=== PATIENT | male | born 1980 | race Caucasian/White ===

== ENCOUNTER 2017-12-05 05:00 | Inpatient (IN) | payer OTHER ==
[2017-12-05] MEDS ORDERED: BISACODYL (EC) 5 MG TAB PO (07:00)
[2017-12-05] MEDS ORDERED: morphine 2 MG INJ IV (07:00)
[2017-12-05] MEDS ORDERED: GLUCAGON 1 MG INJ IM (07:30)
[2017-12-05] MEDS ORDERED: GLUCOSE GEL 15 GRAM TUBE BUCCAL (07:30)
[2017-12-05] MEDS ORDERED: DEXTROSE 50% 50 ML SYRINGE IV ×2 (07:30)
[2017-12-05] MEDS ORDERED: GLUCOSE GEL 15 GRAM TUBE PO ×2 (07:30)
[2017-12-05 07:56] LABS: ADD MAN DIFF? NO
[2017-12-05 07:59] LABS: WHITE BLOOD COUNT 11.1 10^3/ul (4.8-10.8)
[2017-12-05 07:59] LABS: BASOPHILS % 0.3 % (0.0-2.0); EOSINOPHILS # 0.1 10^3/ul (0.0-0.5); EOSINOPHILS % 0.9 % (0.0-7.0); HEMATOCRIT 32.2 % (42.0-52.0); HEMOGLOBIN 10.9 g/dl (14.0-18.0); LYMPHOCYTES # 1.5 10^3/ul (0.8-2.9); LYMPHOCYTES % 13.7 % (15.0-51.0); MEAN CORPUSCULAR HEMOGLOBIN 29.3 pg (29.0-33.0); MEAN CORPUSCULAR HGB CONC 33.9 g/dl (32.0-37.0); MEAN CORPUSCULAR VOLUME 86.6 fl (82.0-101.0); MONOCYTE # 0.8 10^3/ul (0.3-0.9); MONOCYTES % 7.3 % (0.0-11.0); NEUTROPHIL # 8.6 10^3/ul (1.6-7.5); NEUTROPHILS % 77.3 % (39.0-77.0); PLATELET COUNT 232 10^3/UL (140-415); RED BLOOD COUNT 3.72 10^6/ul (4.70-6.10); RED CELL DISTRIBUTION WIDTH 11.8 % (11.5-14.5)
[2017-12-05 08:16] LABS: ANION GAP 12 (8-16); BLOOD UREA NITROGEN 18 mg/dl (7-20); CARBON DIOXIDE 25 mmol/L (21-31); CHLORIDE 104 mmol/L (97-110); CREATININE 0.87 mg/dl (0.61-1.24); GLUCOSE 200 mg/dl (70-220); POTASSIUM 4.4 mmol/L (3.5-5.1); SODIUM 137 mmol/L (135-144)
[2017-12-05 08:27] LABS: HEMOGLOBIN A1C 8.4 % (0-5.9)
[2017-12-05] MEDS: CEFTRIAXONE 1 GM/50 ML (PMX) 50 ML IVPB (08:36)
[2017-12-05] MEDS: SOD CHLORIDE 0.9% 1,000 ML IV (08:37)
[2017-12-05] MEDS: ENOXAPARIN 40 MG/0.4 ML SYG SC (08:45)
[2017-12-05] MEDS: INSULIN ASPART [NOVOLOG] 3 ML PEN SC ×4 (09:13→20:12)
[2017-12-05 15:07] LABS: C-REACTIVE PROTEIN 6.9 mg/dl (0.0-0.9)
[2017-12-05] MEDS ORDERED: VANCOMYCIN IV PER PHARMACY XX (17:00)
[2017-12-05] MEDS: VANCOMYCIN 1.75 GM in SOD CHLORIDE 0.9% 500 ML IVPB (23:43)
[2017-12-05] MEDS: ACCU-CHEK XX (23:48)
[2017-12-06] MEDS: CEFTRIAXONE 1 GM/50 ML (PMX) 50 ML IVPB (06:00)
[2017-12-06 06:39] LABS: ADD MAN DIFF? NO
[2017-12-06 06:42] LABS: BASOPHIL # 0.1 10^3/ul (0.0-0.1); BASOPHILS % 0.7 % (0.0-2.0); EOSINOPHILS # 0.1 10^3/ul (0.0-0.5); HEMATOCRIT 30.8 % (42.0-52.0); HEMOGLOBIN 10.5 g/dl (14.0-18.0); LYMPHOCYTES # 1.6 10^3/ul (0.8-2.9); LYMPHOCYTES % 22.7 % (15.0-51.0); MEAN CORPUSCULAR HGB CONC 34.1 g/dl (32.0-37.0); MEAN PLATELET VOLUME 10.3 fl (7.4-10.4); MONOCYTE # 0.6 10^3/ul (0.3-0.9); MONOCYTES % 8.8 % (0.0-11.0); NEUTROPHIL # 4.6 10^3/ul (1.6-7.5); NEUTROPHILS % 65.5 % (39.0-77.0); PLATELET COUNT 251 10^3/UL (140-415); RED CELL DISTRIBUTION WIDTH 11.9 % (11.5-14.5)
[2017-12-06 07:14] LABS: ANION GAP 11 (8-16); BLOOD UREA NITROGEN 18 mg/dl (7-20); CARBON DIOXIDE 26 mmol/L (21-31); CHLORIDE 107 mmol/L (97-110); CREATININE 0.94 mg/dl (0.61-1.24); GLUCOSE 197 mg/dl (70-220); POTASSIUM 4.1 mmol/L (3.5-5.1); SODIUM 140 mmol/L (135-144)
[2017-12-06 07:16] LABS: PHOSPHORUS 3.9 mg/dl (2.5-4.9)
[2017-12-06] MEDS: ENOXAPARIN 40 MG/0.4 ML SYG SC (08:20)
[2017-12-06] MEDS: INSULIN ASPART [NOVOLOG] 3 ML PEN SC ×4 (08:22→20:37)
[2017-12-06] MEDS: VANCOMYCIN 1.25 GM in SOD CHLORIDE 0.9% 250 ML IVPB ×2 (11:43→23:08)
[2017-12-06] MEDS: SODIUM HYPOCHLORITE (1/40) 1 APPLIC BTL IRR (15:00)
[2017-12-06] MEDS ORDERED: morphine LIQ (10 MG/5 ML) CUP PO (19:00)
[2017-12-06] MEDS: INSULIN DETEMIR [LEVEMIR] (100 UNITS/ML) SYG SC (20:33)
[2017-12-07] MEDS: ACCU-CHEK XX (02:00)
[2017-12-07 05:20] LABS: ADD MAN DIFF? NO; BASOPHILS % 0.4 % (0.0-2.0); EOSINOPHILS # 0.1 10^3/ul (0.0-0.5); HEMATOCRIT 32.8 % (42.0-52.0); HEMOGLOBIN 11.1 g/dl (14.0-18.0); IMMATURE GRANS #M 0.02 10^3/ul; IMMATURE GRANS % (M) 0.3 %; LYMPHOCYTES # 1.8 10^3/ul (0.8-2.9); MEAN CORPUSCULAR HGB CONC 33.8 g/dl (32.0-37.0); MEAN CORPUSCULAR VOLUME 85.6 fl (82.0-101.0); MEAN PLATELET VOLUME 9.9 fl (7.4-10.4); MONOCYTE # 0.6 10^3/ul (0.3-0.9); MONOCYTES % 8.1 % (0.0-11.0); NEUTROPHIL # 4.5 10^3/ul (1.6-7.5); NEUTROPHILS % 64.2 % (39.0-77.0); PLATELET COUNT 286 10^3/UL (140-415); RED BLOOD COUNT 3.83 10^6/ul (4.70-6.10); RED CELL DISTRIBUTION WIDTH 11.7 % (11.5-14.5)
[2017-12-07 05:56] LABS: ANION GAP 11 (8-16); BLOOD UREA NITROGEN 14 mg/dl (7-20); CALCIUM 9.6 mg/dl (8.4-10.2); CARBON DIOXIDE 26 mmol/L (21-31); CHLORIDE 106 mmol/L (97-110); CREATININE 0.87 mg/dl (0.61-1.24); GLUCOSE 188 mg/dl (70-220); POTASSIUM 4.3 mmol/L (3.5-5.1); SODIUM 139 mmol/L (135-144)
[2017-12-07] MEDS: PANTOPRAZOLE (EC) 40 MG TAB PO (06:19)
[2017-12-07] MEDS: CEFTRIAXONE 1 GM/50 ML (PMX) 50 ML IVPB (06:22)
[2017-12-07] MEDS: INSULIN DETEMIR [LEVEMIR] (100 UNITS/ML) SYG SC (08:08)
[2017-12-07] MEDS: ENOXAPARIN 40 MG/0.4 ML SYG SC (08:09)
[2017-12-07] MEDS: INSULIN ASPART [NOVOLOG] 3 ML PEN SC ×4 (08:09→21:00)
[2017-12-07] MEDS: VANCOMYCIN 1.25 GM in SOD CHLORIDE 0.9% 250 ML IVPB ×2 (12:02→23:13)
[2017-12-07] MEDS: LINAGLIPTIN 5 MG TABLET PO (12:03)
[2017-12-07] MEDS: SODIUM HYPOCHLORITE (1/40) 1 APPLIC BTL IRR (14:30)
[2017-12-07] MEDS: LIDOCAINE 1% (MPF) 5 ML VIAL SC (16:30)
[2017-12-08] MEDS: ACCU-CHEK XX (02:00)
[2017-12-08] MEDS: PANTOPRAZOLE (EC) 40 MG TAB PO (05:20)
[2017-12-08 05:38] LABS: ANION GAP 13 (8-16); BLOOD UREA NITROGEN 15 mg/dl (7-20); CALCIUM 9.5 mg/dl (8.4-10.2); CARBON DIOXIDE 27 mmol/L (21-31); CHLORIDE 104 mmol/L (97-110); CREATININE 0.89 mg/dl (0.61-1.24); GLUCOSE 176 mg/dl (70-220); POTASSIUM 4.3 mmol/L (3.5-5.1); SODIUM 140 mmol/L (135-144)
[2017-12-08] MEDS: CEFTRIAXONE 1 GM/50 ML (PMX) 50 ML IVPB (06:05)
[2017-12-08] MEDS: LINAGLIPTIN 5 MG TABLET PO (08:03)
[2017-12-08] MEDS: INSULIN DETEMIR [LEVEMIR] (100 UNITS/ML) SYG SC (08:04)
[2017-12-08] MEDS: INSULIN ASPART [NOVOLOG] 3 ML PEN SC ×4 (08:05→20:55)
[2017-12-08] MEDS: VANCOMYCIN 1.25 GM in SOD CHLORIDE 0.9% 250 ML IVPB ×2 (11:00→12:24)
[2017-12-08] MEDS: ENOXAPARIN 40 MG/0.4 ML SYG SC (12:25)
[2017-12-08] MEDS: SODIUM HYPOCHLORITE (1/40) 1 APPLIC BTL IRR (14:50)
[2017-12-08] MEDS: CEFEPIME 2GM/50 ML (PMX) 50 ML IVPB (22:32)
[2017-12-09] MEDS: DEXTROSE 5%-0.45% NACL 1,000 ML IV ×2 (00:33→20:00)
[2017-12-09] MEDS: VANCOMYCIN 1.25 GM in SOD CHLORIDE 0.9% 250 ML IVPB ×3 (00:33→22:33)
[2017-12-09] MEDS: INSULIN ASPART [NOVOLOG] 3 ML PEN SC ×6 (01:00→21:00)
[2017-12-09] MEDS: PANTOPRAZOLE (EC) 40 MG TAB PO (05:46)
[2017-12-09] MEDS: LINAGLIPTIN 5 MG TABLET PO (09:00)
[2017-12-09] MEDS: CEFEPIME 2GM/50 ML (PMX) 50 ML IVPB ×2 (09:07→21:44)
[2017-12-09] MEDS: ENOXAPARIN 40 MG/0.4 ML SYG SC (09:09)
[2017-12-09] MEDS: INSULIN DETEMIR [LEVEMIR] (100 UNITS/ML) SYG SC (09:10)
[2017-12-09] MEDS: SODIUM HYPOCHLORITE (1/40) 1 APPLIC BTL IRR (09:17)
[2017-12-09 17:55] LABS: INR 0.97
[2017-12-10] MEDS: INSULIN ASPART [NOVOLOG] 3 ML PEN SC ×5 (01:00→16:45)
[2017-12-10] MEDS: PANTOPRAZOLE (EC) 40 MG TAB PO (06:00)
[2017-12-10 08:35] LABS: ANION GAP 10 (8-16); BLOOD UREA NITROGEN 18 mg/dl (7-20); CALCIUM 8.8 mg/dl (8.4-10.2); CARBON DIOXIDE 25 mmol/L (21-31); CHLORIDE 105 mmol/L (97-110); CREATININE 0.84 mg/dl (0.61-1.24); GLUCOSE 322 mg/dl (70-220); POTASSIUM 4.1 mmol/L (3.5-5.1); SODIUM 136 mmol/L (135-144)
[2017-12-10] MEDS: SODIUM HYPOCHLORITE (1/40) 1 APPLIC BTL IRR (08:55)
[2017-12-10] MEDS: CEFEPIME 2GM/50 ML (PMX) 50 ML IVPB ×2 (08:56→22:19)
[2017-12-10] MEDS: LINAGLIPTIN 5 MG TABLET PO (08:56)
[2017-12-10] MEDS: INSULIN DETEMIR [LEVEMIR] (100 UNITS/ML) SYG SC (08:59)
[2017-12-10] MEDS: ENOXAPARIN 40 MG/0.4 ML SYG SC (09:00)
[2017-12-10] MEDS: VANCOMYCIN 1.25 GM in SOD CHLORIDE 0.9% 250 ML IVPB (11:16)
[2017-12-10] MEDS: DEXTROSE 5%-0.45% NACL 1,000 ML IV (15:58)
[2017-12-10] MEDS ORDERED: LABETALOL HCL 20MG INJ IV (19:30)
[2017-12-10] MEDS ORDERED: FENTAnyl 50 MCG/ML VIAL IV (19:30)
[2017-12-10] MEDS ORDERED: MEPERIDINE 25 MG INJ IV (19:30)
[2017-12-10] MEDS ORDERED: DIPHENHYDRAMINE 50 MG INJ IV (19:30)
[2017-12-10] MEDS ORDERED: hydrALAzine 20 MG INJ IV (19:30)
[2017-12-10] MEDS ORDERED: ONDANSETRON 4 MG INJ IV ×2 (19:30→20:30)
[2017-12-10] MEDS ORDERED: HYDROmorphONE 1 MG/5 ML IV SYRINGE IV ×2 (19:30)
[2017-12-10] MEDS ORDERED: MIDAZOLAM 1 MG/ML 2 ML INJ (19:37)
[2017-12-10] MEDS ORDERED: FENTAnyl 50 MCG/ML VIAL (19:37)
[2017-12-10] MEDS: POLYMYXIN/BACITRACIN 1L IRRIG IRR (19:48)
[2017-12-10] MEDS ORDERED: LIDOCAINE 2% (SDV) 5 ML INJ (20:13)
[2017-12-10] MEDS ORDERED: PROPOFOL 20 ML (20:13)
[2017-12-10] MEDS ORDERED: HYDROCODONE/APAP (5/325) TAB PO (20:30)
[2017-12-10] MEDS ORDERED: INSULIN ASPART [NOVOLOG] 3 ML PEN SC (22:00)
[2017-12-10 23:51] LABS: VANCOMYCIN,TROUGH 12.1 ug/ml (10.0-20.0)
[2017-12-11] MEDS: VANCOMYCIN 1.25 GM in SOD CHLORIDE 0.9% 250 ML IVPB ×2 (00:07→10:41)
[2017-12-11] MEDS ORDERED: ACCU-CHEK XX ×2 (02:00)
[2017-12-11] MEDS: ACCU-CHEK XX ×2 (02:00→22:07)
[2017-12-11] MEDS: PANTOPRAZOLE (EC) 40 MG TAB PO (06:29)
[2017-12-11] MEDS: INSULIN ASPART [NOVOLOG] 3 ML PEN SC ×4 (08:00→20:14)
[2017-12-11] MEDS ORDERED: INSULIN ASPART [NOVOLOG] 3 ML PEN SC (08:00)
[2017-12-11] MEDS: CEFEPIME 2GM/50 ML (PMX) 50 ML IVPB ×2 (08:10→20:14)
[2017-12-11] MEDS: ENOXAPARIN 40 MG/0.4 ML SYG SC (08:11)
[2017-12-11] MEDS: INSULIN DETEMIR [LEVEMIR] (100 UNITS/ML) SYG SC (08:12)
[2017-12-11] MEDS: LINAGLIPTIN 5 MG TABLET PO (08:13)
[2017-12-11] MEDS: SODIUM HYPOCHLORITE (1/40) 1 APPLIC BTL IRR (08:20)
[2017-12-11 11:26] LABS: PROCALCITONIN <0.10 ng/mL (<0.10)
[2017-12-11] MEDS: DEXTROSE 5%-0.45% NACL 1,000 ML IV (12:00)
[2017-12-11] MEDS: VANCOMYCIN 1.5 GM in SOD CHLORIDE 0.9% 250 ML IVPB (21:46)
[2017-12-12] MEDS: PANTOPRAZOLE (EC) 40 MG TAB PO (05:36)
[2017-12-12] MEDS: ENOXAPARIN 40 MG/0.4 ML SYG SC (08:15)
[2017-12-12] MEDS: INSULIN ASPART [NOVOLOG] 3 ML PEN SC ×4 (08:15→20:39)
[2017-12-12] MEDS: INSULIN DETEMIR [LEVEMIR] (100 UNITS/ML) SYG SC (08:16)
[2017-12-12] MEDS: LINAGLIPTIN 5 MG TABLET PO (08:17)
[2017-12-12] MEDS: CEFEPIME 2GM/50 ML (PMX) 50 ML IVPB ×2 (08:17→20:39)
[2017-12-12] MEDS: SODIUM HYPOCHLORITE (1/40) 1 APPLIC BTL IRR (08:17)
[2017-12-12] MEDS: VANCOMYCIN 1.5 GM in SOD CHLORIDE 0.9% 250 ML IVPB ×2 (10:30→21:55)
[2017-12-12] MEDS: ACETAMINOPHEN 325 MG TAB PO (16:46)
[2017-12-12] MEDS: ACCU-CHEK XX (21:36)
[2017-12-13] MEDS: PANTOPRAZOLE (EC) 40 MG TAB PO (05:44)
[2017-12-13 06:30] LABS: ADD MAN DIFF? NO
[2017-12-13 06:40] LABS: BASOPHILS % 0.6 % (0.0-2.0); EOSINOPHILS # 0.2 10^3/ul (0.0-0.5); EOSINOPHILS % 2.3 % (0.0-7.0); HEMOGLOBIN 11.7 g/dl (14.0-18.0); LYMPHOCYTES # 1.9 10^3/ul (0.8-2.9); LYMPHOCYTES % 26.5 % (15.0-51.0); MEAN CORPUSCULAR HEMOGLOBIN 29.3 pg (29.0-33.0); MEAN CORPUSCULAR HGB CONC 34.4 g/dl (32.0-37.0); MEAN CORPUSCULAR VOLUME 85.2 fl (82.0-101.0); MEAN PLATELET VOLUME 9.6 fl (7.4-10.4); MONOCYTE # 0.6 10^3/ul (0.3-0.9); MONOCYTES % 7.9 % (0.0-11.0); NEUTROPHIL # 4.4 10^3/ul (1.6-7.5); PLATELET COUNT 289 10^3/UL (140-415); RED BLOOD COUNT 3.99 10^6/ul (4.70-6.10); RED CELL DISTRIBUTION WIDTH 11.9 % (11.5-14.5)
[2017-12-13 06:40] LABS: WHITE BLOOD COUNT 7.1 10^3/ul (4.8-10.8)
[2017-12-13 07:00] LABS: ANION GAP 12 (8-16); BLOOD UREA NITROGEN 18 mg/dl (7-20); CALCIUM 9.4 mg/dl (8.4-10.2); CARBON DIOXIDE 27 mmol/L (21-31); CHLORIDE 105 mmol/L (97-110); CREATININE 0.86 mg/dl (0.61-1.24); GLUCOSE 143 mg/dl (70-220); POTASSIUM 4.4 mmol/L (3.5-5.1); SODIUM 140 mmol/L (135-144)
[2017-12-13 07:12] LABS: MAGNESIUM 1.8 mg/dl (1.7-2.5)
[2017-12-13] MEDS: CEFEPIME 2GM/50 ML (PMX) 50 ML IVPB ×2 (08:10→20:16)
[2017-12-13] MEDS: INSULIN DETEMIR [LEVEMIR] (100 UNITS/ML) SYG SC (08:13)
[2017-12-13] MEDS: ENOXAPARIN 40 MG/0.4 ML SYG SC (08:13)
[2017-12-13] MEDS: INSULIN ASPART [NOVOLOG] 3 ML PEN SC ×4 (08:14→20:16)
[2017-12-13] MEDS: LINAGLIPTIN 5 MG TABLET PO (08:15)
[2017-12-13] MEDS: SODIUM HYPOCHLORITE (1/40) 1 APPLIC BTL IRR (08:18)
[2017-12-13] MEDS: ALTEPLASE (CATHFLO) 2 MG INJ CATHETER (11:00)
[2017-12-13] MEDS: VANCOMYCIN 1.5 GM in SOD CHLORIDE 0.9% 250 ML IVPB ×3 (11:42→22:00)
[2017-12-13] MEDS: LEVOFLOXACIN 500 MG TAB PO (20:16)
[2017-12-13 22:02] LABS: VANCOMYCIN,TROUGH 21.6 ug/ml (10.0-20.0)
[2017-12-13] MEDS: ACCU-CHEK XX (22:16)
[2017-12-14] MEDS: PANTOPRAZOLE (EC) 40 MG TAB PO (05:22)
[2017-12-14] MEDS: LINAGLIPTIN 5 MG TABLET PO (08:39)
[2017-12-14] MEDS: ENOXAPARIN 40 MG/0.4 ML SYG SC (08:39)
[2017-12-14] MEDS: INSULIN DETEMIR [LEVEMIR] (100 UNITS/ML) SYG SC (08:40)
[2017-12-14] MEDS: INSULIN ASPART [NOVOLOG] 3 ML PEN SC ×4 (08:41→21:00)
[2017-12-14] MEDS: CEFEPIME 2GM/50 ML (PMX) 50 ML IVPB ×2 (08:46→21:27)
[2017-12-14] MEDS: SODIUM HYPOCHLORITE (1/40) 1 APPLIC BTL IRR (09:00)
[2017-12-14] MEDS: VANCOMYCIN 1.25 GM in SOD CHLORIDE 0.9% 250 ML IVPB (09:57)
[2017-12-14] MEDS: LEVOFLOXACIN 500 MG TAB PO (21:27)
[2017-12-14] MEDS: VANCOMYCIN 1 GM 250 ML IVPB (22:43)
[2017-12-14] MEDS: ACCU-CHEK XX (22:46)
[2017-12-15] MEDS: PANTOPRAZOLE (EC) 40 MG TAB PO (05:20)
[2017-12-15] MEDS: INSULIN ASPART [NOVOLOG] 3 ML PEN SC ×3 (08:00→17:50)
[2017-12-15] MEDS: LINAGLIPTIN 5 MG TABLET PO (08:35)
[2017-12-15] MEDS: CEFEPIME 2GM/50 ML (PMX) 50 ML IVPB (08:35)
[2017-12-15] MEDS: INSULIN DETEMIR [LEVEMIR] (100 UNITS/ML) SYG SC (08:37)
[2017-12-15] MEDS: ENOXAPARIN 40 MG/0.4 ML SYG SC (08:39)
[2017-12-15] MEDS: SODIUM HYPOCHLORITE (1/40) 1 APPLIC BTL IRR (09:40)
[2017-12-15] MEDS: VANCOMYCIN 1 GM 250 ML IVPB ×2 (09:49→18:10)
[2017-12-15] MEDS: LEVOFLOXACIN 500 MG TAB PO (20:31)
== END 2017-12-15 20:55 | disposition home health service (06) | DRG 623 ==
LOC: PP2 05:00
PROC: 0JBQ0ZZ Excision of Right Foot Subcutaneous Tissue and Fascia, Open Approach (ICD-10-PCS; principal; 2017-12-10 19:33)
PROC: 0JBQ0ZZ Excision of Right Foot Subcutaneous Tissue and Fascia, Open Approach (ICD-10-PCS; 2017-12-10 19:33)
PROC: 0Y9M0ZZ Drainage of Right Foot, Open Approach (ICD-10-PCS; 2017-12-10 19:33)
PROC: 02HV33Z Insertion of Infusion Device into Superior Vena Cava, Percutaneous Approach (ICD-10-PCS; 2017-12-10 19:33)
DX: E11.621 Type 2 diabetes mellitus with foot ulcer (principal); L02.611 Cutaneous abscess of right foot; E87.1 Hypo-osmolality and hyponatremia; M00.9 Pyogenic arthritis, unspecified; M86.9 Osteomyelitis, unspecified; L97.519 Non-pressure chronic ulcer of other part of right foot with unspecified severity; L03.031 Cellulitis of right toe; E11.42 Type 2 diabetes mellitus with diabetic polyneuropathy; I10 Essential (primary) hypertension; E11.65 Type 2 diabetes mellitus with hyperglycemia; E66.9 Obesity, unspecified; G57.61 Lesion of plantar nerve, right lower limb; D64.9 Anemia, unspecified; B95.61 Methicillin susceptible Staphylococcus aureus infection as the cause of diseases classified elsewhere; D72.829 Elevated white blood cell count, unspecified; B95.4 Other streptococcus as the cause of diseases classified elsewhere; B96.89 Other specified bacterial agents as the cause of diseases classified elsewhere; Z68.30 Body mass index [BMI] 30.0-30.9, adult
CPT/HCPCS: 36569; 71045; 73630-50; 73718; 76937; 80048; 80202; 82962; 83036; 83735; 84100; 84145; 85025; 85610; 86140; 87070; 87075; 87102; 88305; 93005; 93922